=== PATIENT | female | born 1985 | race Caucasian/White ===

== ENCOUNTER 2022-06-30 17:45 | Emergency (ER) | payer OTHER ==
[~2022-06-30] VITALS: Ht 165.1 cm; Wt 117.9 kg
[2022-06-30 17:45] VITALS: BP 149/124
--- NOTE | 2022-06-30 17:50 | ER.PDOC ---
General Chief Complaint: Requesting Medical Care Stated Complaint: GENERAL Time seen by MD: 17:49 Source: patient History of Present Illness Initial Comments infected tattoo: got it about a week ago and 2 says later startyed to burn not pruritic Allergic to pcn She is a heavy smoker No local md Last tetanus booster <10 yrs Location: LUE Quality: painful Identified Cause: possibly Exposure: other (tattoo) Prior symptoms/Treatment: Similar symptoms previous Past Medical History Medical History: no pertinent history Social History Smoking: greater than 1 pack/day Drug Use: none Reviewed Nursing Reviewed: Vital Signs, Abn. Noted, Nursing Assessment Constitutional: no symptoms reported EENTM: no symptoms reported Respiratory: no symptoms reported Cardiovascular: no symptoms reported Gastrointestinal: no symptoms reported Genitourinary: no symptoms reported Musculoskeletal: see HPI Skin: see HPI Psychiatric/Neurological: no symptoms reported Endocrine: no symptoms reported Hematologic/Lymphatic: no symptoms reported All Other Systems: Reviewed and Negative Physical Exam General Appearance: alert, no distress Skin: warm/dry, tender indurated area (Heart shaped scaling and serus crust,zone of induration:mimimal;) Extremities: nml ROM EENT: eyes nml inspection Respiratory: no resp. distress, breath sounds nml Abdomen: other (protuberant) Progress Progress local reaction to pigment vs cellulitis will treat as infection initially ER DEPART Departure Time of Disposition: 18:04 Disposition: 01 HOME / SELF CARE / HOMELESS Impression: Primary Impression: Cellulitis Additional Impression: Eczema Condition: Stable Referrals: PCP,UNKNOWN (PCP) PRIMARY CARE PROVIDER Comments possible infected but could be local allergic reaction If not better in a few days consider steroids no smking Duration or Time Spent with Pa: 15 Problem Qualifiers SHERRI MASCORRO MD Jun 30, 2022 17:50
== END 2022-06-30 18:12 | disposition home or self-care (01) ==
LOC: ER 17:45
DX: L30.9 Dermatitis, unspecified (principal); F17.200 Nicotine dependence, unspecified, uncomplicated
CPT/HCPCS: 99283